=== PATIENT | female | born 1930 | race Caucasian/White ===

== ENCOUNTER 2018-02-20 03:33 | Inpatient (IN) ==
[2018-02-20] MEDS ORDERED: 0.9 % Sodium Chloride 1,000 ML IVC ONE (03:51)
[2018-02-20] MEDS ORDERED: *HR* FentaNYL (PF) 100 MCG/2 ML VIAL IVP ONE ×2 (03:54→05:40)
--- NOTE | 2018-02-20 04:28 | Emergency Department Note ---
Disposition Clinical Impression: Fracture of femur Qualifiers: Encounter type: initial encounter Femur location: unspecified portion of femur Fracture type: closed Fracture morphology: unspecified fracture morphology Laterality: right Qualified Code(s): S72.91XA - Unspecified fracture of right femur, initial encounter for closed fracture Pelvis fracture Qualifiers: Encounter type: initial encounter Pelvic bone location: pubis Sublocation of pubis: unspecified portion of pubis Fracture type: closed Laterality: unspecified laterality Qualified Code(s): S32.509A - Unspecified fracture of unspecified pubis, initial encounter for closed fracture Disposition: Admitted As Inpatient Condition: Good Referrals: NONE,PCP [Primary Care Provider] - Forms: ED Satisfaction Letter Time of Disposition: 06:50 Fall HPI - General Chief Complaint: ED Extremity Injury, Lower Stated Complaint: fall Time Seen by Provider: 02/20/18 03:43 Source: EMS Nursing Notes Reviewed: Yes Vital Signs Reviewed: Yes - History of Present Illness Pt Subjective Complaint: fall Onset (ago): hour(s) (8) Fall From: standing Fall Witnessed: yes Place Fall Occurred: halfway/SNF Loss of Consciousness: none Prolonged Down Time?: no Symptoms Prior to Fall: none Context: tripped/slipped (had attempted to walk without walker), history of frequent falls Location of injury - extremities: Right: hip Quality: aching Associated symptoms (after fall): Reports: unable to walk. Denies: headache, neck pain, chest pain, shortness of breath, abdominal pain, lightheaded - Related Data Allergies Allergy/AdvReac Type Severity Reaction Status Date / Time No Known Allergies Allergy Verified 02/20/18 03:43 All systems ED: reviewed and negative except as stated. Review of Systems: As Per HPI Constitutional: Denies: fever, chills, weakness ENT ED: Denies: throat pain Cardiovascular: Denies: chest pain Respiratory: Denies: dyspnea Gastrointestinal: Denies: abdominal pain, nausea, vomiting Musculoskeletal: Denies: back pain, neck pain Integumentary: Denies: rash Neurological: Denies: headache Hematological/Lymphatic: Denies: easy bleeding Allergic/Immunologic: Denies: facial swelling Fall PMH - Past Medical History Medical history: Reports: atrial fibrillation, dementia, glaucoma, hyperlipidemia, hypertension, renal disease, other - Social History Smoking Status: Never smoker Alcohol use: Reports: none Drug use: Reports: none Physical Exam - General Limitations: altered mental status General appearance: alert, in no apparent distress - Head Head exam: atraumatic, normocephalic - Eye Eye exam: Absent: conjunctival injection - ENT ENT exam: normal exam, normal oropharynx, mucous membranes moist - Neck Neck exam: Present: full ROM. Absent: tenderness - Chest Chest inspection: Present: symmetric chest wall rise - Respiratory Respiratory exam: Absent: respiratory distress - Cardiovascular Cardiovascular exam: Present: regular rate - Abdominal Exam Abdominal exam: Present: soft, Non-Tender - Extremities Exam Extremities exam: Present: normal capillary refill - Expanded Lower Extremity Exam Hip/Pelvis exam: Present: tenderness (right), pelvis stable. Absent: full ROM, swelling, erythema Upper leg exam: Present: tenderness (right) Lower leg exam: Absent: tenderness, swelling Ankle exam: Absent: tenderness, swelling Foot/toe exam: Absent: tenderness, swelling Neurovascular/Tendon exam: Absent: pulse deficit Gait: not tested/not observed - Neurological Exam Neurological exam: Present: alert - Psychiatric Psychiatric exam: Present: normal affect, normal mood - Skin Skin exam: Present: warm, dry, intact, normal color. Absent: rash, cyanosis, diaphoresis Course Course Narrative: 87-year-old female arrives via squad from her halfway (the [facility] [place]). Squad had reported that they were discussed there, after a noted right hip fracture on x-ray. Patient reports that she has pain in her right hip, and states that she had fallen yesterday, otherwise her history appears to be limited. I was able to have a discussion by telephone with patient's nurse at [facility], Jammie. She mentions patient had fallen approximately 8 to 8:30 PM. Apparently patient became agitated with another resident, had gotten out of bed to yell at him, and did not use her walker and had a mechanical fall. Jammie did report patient has had a history of mechanical falls. She denies that the patient had any loss of consciousness, prolonged downtime, near syncopal symptoms. She does confirm the patient has a history of Alzheimer's, and mentions that patient before and after the fall had been mentating at her baseline. She is given the patient's medication [place] [phone] but did not feel that had helped. The report her vitals were within normal limits after the injury. They deny any recent illness, any other injuries, and they described the patient as able to use a walker and not bedridden. She mentions patient's son is aware and may be in route. PMhx: Atrial fibrillation currently on Xarelto, Alzheimer's disease, glaucoma, depression, hypertension, chronic kidney disease, h/o of chronic falls Pt code status is DNRCC Arrest On examination patient is alert to self. Head face , upper extremities appear to be atraumatic. Tenderness over right thigh and hip. No abdominal tenderness. Heart regular rate. Physical exam limited due to patient's pain, patient is is not able to sit up. She does follow commands and does respond to pain. Her vitals here are within normal limits. At this point I do not have access to patient's x-rays, so we will shoot them. Analgesics ordered. IV ordered. Will plan ortho consult and likely admission. - Reevaluation(s) Reevaluation #1: X-rays reviewed, she does have a trochanteric femur fracture, as well as fractures to the inferior and superior rami. We will plan for ortho consult, and admission. CXR shows no evidence of infection or rib fractures. UA pending , nursing attempting to place resendiz cath. Time: 06:00 Reevaluation #2: Pt discussed with and accepted by hospitalists Dr. Jon Time: 06:43 - Consultations Consultation #1: On-call orthopedic provider was paged, patient's workup and medical history discussed with Dr. Torre, who requested admit patient to hospitalist. He mentioned surgery would likely be today or tomorrow. Time: 06:07 Vital Signs Temperature 98.3 F 02/20/18 03:39 Pulse Rate 86 02/20/18 03:39 Respiratory Rate 20 02/20/18 03:39 Blood Pressure 164/84 02/20/18 03:39 O2 Sat by Pulse Oximetry 94 02/20/18 03:39 Temperature 98.3 F 02/20/18 03:39 Pulse Rate 84 02/20/18 06:05 Respiratory Rate 24 02/20/18 06:05 Blood Pressure 171/93 02/20/18 06:05 O2 Sat by Pulse Oximetry 95 02/20/18 06:05 Oxygen Delivery Oxygen Delivery Nasal Cannula Fall - [facility] Narrative Medical decision making narrative: Patient presented from her halfway with injuries from a mechanical fall. Workup tonight subtrochanteric right femur fracture, as well as rami fracture orthopedics consult, advised for admission to hospitalist, for likely surgery. Pt discussed with and accepted by Dr. Jon. Pt discussed with Dr. Still who also had face time with patient and agreed with workup and disposition. Patient's vitals stable here. No concern for any injury to head or neck. I had discussed patient with nurse Jammie patient's facility, stated mentating normally for after the injury. She also also denied any concern for recent illness or injury of the patient. Femur X-Ray 02/20/18 04:10 IMPRESSION: 1. Subtrochanteric fracture right femur. 2. In the pelvis, superior and inferior pubic rami on the right side are also fractured. D/ / Osvaldo Hunt / Osvaldo Hunt Interpreting Provider: Osvaldo Hunt Pelvis X-Ray 02/20/18 04:10 IMPRESSION: 1. Subtrochanteric fracture right femur. 2. In the pelvis, superior and inferior pubic rami on the right side are also fractured. D/ / Osvaldo Hunt / Osvaldo Hunt Interpreting Provider: Osvaldo Hunt Chest X-Ray 02/20/18 04:43 IMPRESSION: Cardiomegaly. No displaced rib fracture on the left side. Difficult evaluation for subtle nondisplaced injuries on the right secondary to positioning. D/ / Osvaldo Hunt / Osvaldo Hunt Interpreting Provider: Osvaldo Hunt - Lab Data Lab results reviewed: Yes I reviewed the patient's lab results. Result diagrams: 02/20/18 03:59 02/20/18 03:59 Lab Results 02/20/18 02/20/18 02/20/18 Range/Units 03:59 03:59 03:59 WBC 16.8 H (4.3-11.1) K/mcL RBC 3.98 (3.82-4.97) M/mcL Hgb 10.4 L (11.5-15.4) g/dL Hct 34.7 L (35.3-44.9) % MCV 87.2 (83.0-100.0) fL MCH 26.1 L (28.0-33.3) pg MCHC 30.0 L (31.6-35.5) g/dL RDW 16.9 H (11.5-14.5) % Plt Count 239 (140-400) K/mcL MPV 11.8 (9.4-12.4) fL Immature Gran % 0.8 (0-4) % Seg Neutrophils % 85.1 % Lymphocytes % 5.4 % Monocytes % 7.8 % Eosinophils % 0.7 % Basophils % 0.2 % Neutrophils # 14.3 H (1.6-8.9) K/mcL Lymphocytes # 0.9 (0.6-4.6) K/mcL Monocytes # 1.3 (0.0-1.3) K/mcL Eosinophils # 0.1 (0.0-0.6) K/mcL Basophils # 0.0 (0.0-0.2) K/mcL PT 18.7 H (9.4-12.1) Seconds INR 1.7 APTT 36.5 H (26.0-36.0) Seconds Sodium 140 (136-145) mEq/L Potassium 4.5 (3.5-5.1) mEq/L Chloride 104 (98-107) mEq/L Carbon Dioxide 28 (23-29) mEq/L BUN 18 (8-23) mg/dL Creatinine 0.93 (0.60-1.20) mg/dL Est GFR ( Amer) > 60 (> 60) Est GFR (Non-Af Amer) 57 L (> 60) BUN/Creatinine Ratio 19 (6-26) Glucose 158 H (70-105) mg/dL Calculated Osmolality 295 (280-300) Calcium 9.6 (8.6-10.3) mg/dL Blood Type Antibody Screen 02/20/18 Range/Units 03:59 WBC (4.3-11.1) K/mcL RBC (3.82-4.97) M/mcL Hgb (11.5-15.4) g/dL Hct (35.3-44.9) % MCV (83.0-100.0) fL MCH (28.0-33.3) pg MCHC (31.6-35.5) g/dL RDW (11.5-14.5) % Plt Count (140-400) K/mcL MPV (9.4-12.4) fL Immature Gran % (0-4) % Seg Neutrophils % % Lymphocytes % % Monocytes % % Eosinophils % % Basophils % % Neutrophils # (1.6-8.9) K/mcL Lymphocytes # (0.6-4.6) K/mcL Monocytes # (0.0-1.3) K/mcL Eosinophils # (0.0-0.6) K/mcL Basophils # (0.0-0.2) K/mcL PT (9.4-12.1) Seconds INR APTT (26.0-36.0) Seconds Sodium (136-145) mEq/L Potassium (3.5-5.1) mEq/L Chloride (98-107) mEq/L Carbon Dioxide (23-29) mEq/L BUN (8-23) mg/dL Creatinine (0.60-1.20) mg/dL Est GFR ( Amer) (> 60) Est GFR (Non-Af Amer) (> 60) BUN/Creatinine Ratio (6-26) Glucose (70-105) mg/dL Calculated Osmolality (280-300) Calcium (8.6-10.3) mg/dL Blood Type O NEGATIVE Antibody Screen NEGATIVE - Radiology Data Radiology results reviewed: Yes I reviewed the patient's radiology results. Attestation Statement - Attestation Attestation: I examined this patient and my medical decision-making was reviewed with the Resident Physician. I agree with the documented findings, disposition and treatment plan as described except to the extent set forth below. Subtrochanteric fracture of the right femur. Patient be admitted for orthopedic consultation. Neurovascular intact at this time. Injuries or resulting from fall.
[2018-02-20 04:40] LABS: Basophils % 0.2 %; Eosinophils # 0.1 K/mcL (0.0-0.6); Eosinophils % 0.7 %; Hematocrit 34.7 % (35.3-44.9); Hemoglobin 10.4 g/dL (11.5-15.4); Immature Granulocytes % 0.8 % (0-4); Lymphocytes # 0.9 K/mcL (0.6-4.6); Lymphocytes % 5.4 %; Mean Corpuscular Hemoglobin 26.1 pg (28.0-33.3); Mean Corpuscular Volume 87.2 fL (83.0-100.0); Mean Platelet Volume 11.8 fL (9.4-12.4); Monocytes # 1.3 K/mcL (0.0-1.3); Monocytes % 7.8 %; Neutrophils # 14.3 K/mcL (1.6-8.9); Platelet Count 239 K/mcL (140-400); Red Blood Count 3.98 M/mcL (3.82-4.97); Red Cell Distribution Width 16.9 % (11.5-14.5); Segmented Neutrophils % 85.1 %
[2018-02-20 04:48] LABS: INR 1.7; Prothrombin Time 18.7 Seconds (9.4-12.1)
[2018-02-20 04:50] LABS: Activated Partial Thrombo Time 36.5 Seconds (26.0-36.0)
[2018-02-20 05:02] LABS: BUN/Creatinine Ratio 19 (6-26); Blood Urea Nitrogen 18 mg/dL (8-23); Calcium 9.6 mg/dL (8.6-10.3); Carbon Dioxide 28 mEq/L (23-29); Chloride 104 mEq/L (98-107); Glucose 158 mg/dL (70-105); Osmolality,Calculated 295 (280-300); Potassium 4.5 mEq/L (3.5-5.1); Sodium 140 mEq/L (136-145); eGFR For Non-African Americans 57 (> 60)
[2018-02-20] MEDS ORDERED: *HR* HYDROcodone/Acet 5/325 mg TABLET PO PRN ×2 (07:23→14:50)
[2018-02-20] MEDS ORDERED: *HR* OxyCODONE Immed Rel 5 MG TABLET PO PRN ×2 (07:23→14:50)
[2018-02-20] MEDS ORDERED: Acetaminophen 325 MG TABLET PO PRN (07:23)
[2018-02-20] MEDS ORDERED: Naloxone 0.4 MG/ML INJ IVP PRN ×3 (07:23→14:50)
--- NOTE | 2018-02-20 08:16 | Internal Med History&Physical ---
Date of Encounter: 02/20/18 Time of Encounter: 07:30 Internal Medicine - H&P: HPI Chief complaint: R hip pain History of present illness: Patient has underlying dementia and she was medicated with IV fentanyl for her hip pain so the history is limited. 87 year old female with past medical history of atrial fibrillation, hypertension, hyperlipidemia, CAD, dementia, resident of half-way, presented after an episode of fall yesterday. According to the chart review, patient had fallen around 8pm when she was trying to get out of her bed to yell at another resident but did not use her walker and had a mechanical fall. Landed on the right side of her body, but patient did not lose any consciousness or had obvious head injury. No change in her mentation after the fall. Recent illnesses, fevers/chills, nausea/ vomiting, abdominal pain, change in bowel habits, dysuria, or foul-smelling urine. She is on Xarelto for atrial fibrillation. In the ED, she was afebrile and hemodynamically stable. Initial workup showed right subtrochanteric femoral fracture as well as superior and inferior pubic rami fracture on the same side. Labs were unremarkable except for leukocytosis of 16.8. Her case was discussed with orthopedics on-call who may take her to the surgery today or tomorrow. Past Med Surg Social Fam HX - Past Medical History Medical history: atrial fibrillation, dementia, glaucoma, hyperlipidemia, hypertension, renal disease, other - Social History Smoking Status: Never smoker Smokeless Tobacco Status: No Alcohol use: none Drug use: none Internal Medicine - H&P: Meds Calcium Carbonate/Vitamin D3 [Calcium 600 + Vit D Tablet] 1 tab PO BID 02/20/18 [History] Docusate [Colace] 200 mg PO DAILY 02/20/18 [History] Donepezil [Aricept] 10 mg PO HS 02/20/18 [History] Dorzolamide/Timolol [Cosopt] 1 drop BOTH EYES BID 02/20/18 [History] Gabapentin [Neurontin] 300 mg PO BID 02/20/18 [History] HYDROcodone/Acet 10/325 mg [[place] 10-325 mg] 1 tab PO Q4HR PRN 02/20/18 [History ] Metoprolol Succinate [Toprol Xl] 50 mg PO DAILY 02/20/18 [History] Oxymetazoline HCl [Long Acting Nasal [place]] 15 ml NS BID 02/20/18 [History] Pravastatin Sodium [Pravachol] 20 mg PO DAILY 02/20/18 [History] Rivaroxaban [Xarelto] 15 mg PO DAILY 02/20/18 [History] Sennosides/Docusate Sodium [Senna Plus] 4 tab PO DAILY 02/20/18 [History] Travoprost [Travatan Z] 1 drop OP DAILY 02/20/18 [History] 3 Allergy/AdvReac Type Severity Reaction Status Date / Time No Known Allergies Allergy Verified 02/20/18 03:43 ROS unobtainable: due to mental status All Systems PM: A 10-system review of systems was performed and is negative for pertinent findings except as documented above in the HPI. - Constitutional Vitals: Temp Pulse Resp BP Pulse Ox 98.3 F 86 24 174/84 98 02/20/18 03:39 02/20/18 07:28 02/20/18 07:55 02/20/18 07:55 02/20/18 07:28 Exam: General: Somnolent after medication, appears comfortable otherwise HEENT:EOM, pupils equal, round, and reactive. Cardiovascular:Normal S1 & S2, Pulse irregular but normal rate Lungs:Normal breath sounds, no wheezes or crackles. Abdomen:Soft, non-tender, no rigidity. Extremities:R mid thigh tenderness on palpation, no obvious deformity noted although limited by her body habitus. Neurovascularly intact distally Neurological: Somnolent, moving the other 3 limbs well without focal weakness Skin:Normal color, no rash, no lesions. Pulses:Carotid and radial pulses normal +2. Rest of the physical exam is non-contributory Internal Med - H&P Results - Labs CBC & Chem 7: 02/20/18 03:59 02/20/18 03:59 - Assessment and plan (1) Fracture of femur Current Visit: Yes Status: Acute Assessment and plan: After mechanical fall. X-ray showed right femoral subtrochanteric fracture as well as superior and inferior pubic rami fracture. Nothing by mouth, ortho consult. Op will be likely today We will hold off on Xarelto Pain management Qualifiers: Encounter type: initial encounter Femur location: unspecified portion of femur Fracture type: closed Fracture morphology: unspecified fracture morphology Laterality: right Qualified Code(s): S72.91XA - Unspecified fracture of right femur, initial encounter for closed fracture (2) Pelvis fracture Current Visit: Yes Status: Acute Assessment and plan: Likely nonsurgical management. Follow with ortho Qualifiers: Encounter type: initial encounter Pelvic bone location: pubis Sublocation of pubis: unspecified portion of pubis Fracture type: closed Laterality: right Qualified Code(s): S32.501A - Unspecified fracture of right pubis, initial encounter for closed fracture (3) Afib Current Visit: Yes Status: Acute Assessment and plan: Controlled on beta fidencio, continue We will hold off on Xarelto till postoperative Qualifiers: Atrial fibrillation type: unspecified Qualified Code(s): I48.91 - Unspecified atrial fibrillation (4) CKD (chronic kidney disease) Current Visit: No Status: Chronic Assessment and plan: Stable, continue to monitor postop. Qualifiers: Chronic kidney disease stage: stage 3 (moderate) Qualified Code(s): N18.3 - Chronic kidney disease, stage 3 (moderate) (5) Hypertension Current Visit: No Status: Chronic Assessment and plan: Continue beta fidencio Qualifiers: Hypertension type: unspecified Qualified Code(s): I10 - Essential (primary ) hypertension (6) DVT prophylaxis Current Visit: Yes Status: Acute Assessment and plan: Resume xarelto post-op - Time Spent With Patient Total time spent is greater than 50% in coordination of care (as documented) at patient's floor/unit and/or counseling patient:
[2018-02-20] MEDS ORDERED: Sennosides/Docusate Sodium TABLET PO SCH (09:00)
[2018-02-20] MEDS ORDERED: Latanoprost 2.5 ML BOTTLE BOTH EYES SCH (09:00)
[2018-02-20] MEDS ORDERED: Gabapentin 300 MG CAPSULE PO SCH (09:00)
[2018-02-20] MEDS ORDERED: Metoprolol XL (24 HR) Succ 50 MG TAB.ER.24H PO SCH (09:00)
[2018-02-20] MEDS ORDERED: Dorzolamide/Timolol OPTH 10 ML BOTTLE BOTH EYES SCH (09:00)
[2018-02-20] MEDS ORDERED: [UNRECOGNIZED DRUG - OTHER] PO SCH (09:00)
[2018-02-20] MEDS ORDERED: CALCIUM PO SCH (09:00)
[2018-02-20] MEDS ORDERED: Oxymetazoline Nasal SPRAY BOTTLE NS SCH (09:00)
--- NOTE | 2018-02-20 09:11 | Orthopedic Consult Note ---
Date of Encounter: 02/20/18 Time of Encounter: 09:10 Assessment and Plan (1) Fracture of femur Current Visit: Yes Status: Acute The diagnosis and treatment recommendations were discussed with the patient and her family. She has a intertrochanteric fracture of the right hip and to allow her opportunity for early mobility with therapy, and for pain control and to decrease the risks associated with immobility, surgical treatment was recommended. After discussing the pros and cons of treatment options including non-operative and operative intervention, the patient's son who is POA has consented for right hip cephalomedullary nail to be performed. The risks and benefits of the procedure were fully explained in detail, including but not limited to the risk of infection, neurovascular injury, continued pain or stiffness, failure of surgery, reinjury, or need for additional surgery, DVT, PE , general risks of anesthesia and loss of limb or life. No guarantees were given or implied and all questions were answered. The patient's family understands all the risks and does wish to proceed with written consent. NPO for surgery. Appreciate medical management from primary team. Qualifiers: Encounter type: initial encounter Femur location: unspecified portion of femur Fracture type: closed Fracture morphology: unspecified fracture morphology Laterality: right Qualified Code(s): S72.91XA - Unspecified fracture of right femur, initial encounter for closed fracture History of Present Illness HPI: Ms. Ferguson is a 87 year old female with PMHx atrial fibrillation, hypertension, hyperlipidemia, CAD, dementia, who resides in a long-term who presents after a mechanical fall last night. History is limited due to underlying dementia. She tripped getting out of bed without her walker and fell onto her right side. Reportedly there was no loss of consciousness, she did not hit her head and there was no altered mentation following the fall. No prodromal symptoms including chest pain, palpitations, lightheadedness, or blurring of vision. She was brought to the ED and diagnosed with a right hip displaced transtrochanteric fracture and right superior and inferior rami fracture. Orthopedics was consulted for fracture management. Denies pain other than her right hip. No numbness or tingling. She typically alternates between a walker and wheelchair. Past Med Surg Social Fam HX - Past Medical History Medical history: atrial fibrillation, dementia, glaucoma, hyperlipidemia, hypertension, renal disease, other - Social History Smoking Status: Never smoker Smokeless Tobacco Status: No Alcohol use: none Drug use: none Medications and Allergies Calcium Carbonate/Vitamin D3 [Calcium 600 + Vit D Tablet] 1 tab PO BID 02/20/18 [History] Docusate [Colace] 200 mg PO DAILY 02/20/18 [History] Donepezil [Aricept] 10 mg PO HS 02/20/18 [History] Dorzolamide/Timolol [Cosopt] 1 drop BOTH EYES BID 02/20/18 [History] Gabapentin [Neurontin] 300 mg PO BID 02/20/18 [History] HYDROcodone/Acet 10/325 mg [[place] 10-325 mg] 1 tab PO Q4HR PRN 02/20/18 [History ] Metoprolol Succinate [Toprol Xl] 50 mg PO DAILY 02/20/18 [History] Oxymetazoline HCl [Long Acting Nasal [place]] 15 ml NS BID 02/20/18 [History] Pravastatin Sodium [Pravachol] 20 mg PO DAILY 02/20/18 [History] Rivaroxaban [Xarelto] 15 mg PO DAILY 02/20/18 [History] Sennosides/Docusate Sodium [Senna Plus] 4 tab PO DAILY 02/20/18 [History] Travoprost [Travatan Z] 1 drop OP DAILY 02/20/18 [History] 3 Allergy/AdvReac Type Severity Reaction Status Date / Time No Known Allergies Allergy Verified 02/20/18 03:43 ROS unobtainable: due to mental status All Systems Reviewed: The remainder of the systems were reviewed and are negative Physical Exam - Constitutional Vitals: Temp Pulse Resp BP Pulse Ox 98.6 F 83 20 171/85 95 02/20/18 08:20 02/20/18 08:20 02/20/18 08:20 02/20/18 08:20 02/20/18 08:20 Exam: Consult Exam: Limited by dementia Constitutional -Vitals reviewed -The patient is well developed and well nourished. -Mood is pleasant. Psychiatric -The patient alert and oriented to person. Respiratory: -Respiratory effort normal Abdomen: -Soft abdomen -Non tender -Non distended: Left upper extremity: -No deformities. The overlying skin is intact with overlying ecchymosis. -No significant pain with passive motion of the shoulder, elbow, able to flex fingers. -Spontaneously moves fingers and arm -Radial pulse is present; Fingers have good capillary refill. Right upper extremity: -No deformities. The overlying skin is intact with overlying ecchymosis. -No significant pain with passive motion of the shoulder, elbow, able to flex fingers. -Spontaneously moves fingers and arm -Radial pulse is present; Fingers have good capillary refill. Left lower extremity: -No deformities. The overlying skin is intact. No obvious signs of acute trauma. -No tenderness to palpation throughout. -No pain with passive motion of the hip, knee, ankle, and toes within the limits of the bed. -No pain with axial loading of the thigh. -Able to wiggle toes -Toes have good capillary refill. Right lower extremity: -Deformity and shortening to the right leg. The overlying skin is intact. -There is tenderness at the proximal lateral thigh. -I did not range the hip due to the known fracture. -No tenderness along the distal thigh, leg, ankle, foot, or toes. -Able to wiggle toes -Toes have good capillary refill. Results - Labs Result Diagrams: 02/20/18 03:59 02/20/18 03:59 Labs: Abnormal lab results WBC 16.8 K/mcL (4.3-11.1) H 02/20/18 03:59 Hgb 10.4 g/dL (11.5-15.4) L 02/20/18 03:59 Hct 34.7 % (35.3-44.9) L 02/20/18 03:59 MCH 26.1 pg (28.0-33.3) L 02/20/18 03:59 MCHC 30.0 g/dL (31.6-35.5) L 02/20/18 03:59 RDW 16.9 % (11.5-14.5) H 02/20/18 03:59 Neutrophils # 14.3 K/mcL (1.6-8.9) H 02/20/18 03:59 PT 18.7 Seconds (9.4-12.1) H 02/20/18 03:59 APTT 36.5 Seconds (26.0-36.0) H 02/20/18 03:59 Est GFR (Non-Af Amer) 57 (> 60) L 02/20/18 03:59 Glucose 158 mg/dL (70-105) H 02/20/18 03:59 All other labs normal. - Diagnostic results Hip x-ray: report reviewed, image reviewed (Right transtrochanteric fracture with extension into the greater trochanter) Pelvic AP x-ray: report reviewed, image reviewed (Nondisplaced right inferior and superior rami fx) Consult Discharge Plan - Plan Referrals: NONE,PCP [Primary Care Provider] -
--- NOTE | 2018-02-20 10:46 | Anesthesia Evaluation PreOp ---
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 WORKER History: Other (Alzheimers Dementia) Other Medical History: Renal (stage 3 CRI), Other (Glaucoma) Anesthesia History: No Prior Anesthetic Complications, Past Anesthesia ("Back Tumor" 1960s, Heel spur) Alcohol Use: none Drug use: none Medications and Allergies Calcium Carbonate/Vitamin D3 [Calcium 600 + Vit D Tablet] 1 tab PO BID 02/20/18 [History] Docusate [Colace] 200 mg PO DAILY 02/20/18 [History] Donepezil [Aricept] 10 mg PO HS 02/20/18 [History] Dorzolamide/Timolol [Cosopt] 1 drop BOTH EYES BID 02/20/18 [History] Gabapentin [Neurontin] 300 mg PO BID 02/20/18 [History] HYDROcodone/Acet 10/325 mg [[place] 10-325 mg] 1 tab PO Q4HR PRN 02/20/18 [History ] Metoprolol Succinate [Toprol Xl] 50 mg PO DAILY 02/20/18 [History] Oxymetazoline HCl [Long Acting Nasal [place]] 15 ml NS BID 02/20/18 [History] Pravastatin Sodium [Pravachol] 20 mg PO DAILY 02/20/18 [History] Rivaroxaban [Xarelto] 15 mg PO DAILY 02/20/18 [History] Sennosides/Docusate Sodium [Senna Plus] 4 tab PO DAILY 02/20/18 [History] Travoprost [Travatan Z] 1 drop OP DAILY 02/20/18 [History] 3 Allergy/AdvReac Type Severity Reaction Status Date / Time No Known Allergies Allergy Verified 02/20/18 03:43 - Meds/Allergy Pre-op Review Medications Reviewed: Yes Allergies Reviewed: Yes Beta Blockers on Current Med List: Yes (Metoprolol - pt refused this morning's dose. ) Anesthesia Results - Labs 02/20/18 03:59 02/20/18 03:59 Laboratory Results WBC 16.8 K/mcL (4.3-11.1) H 02/20/18 03:59 RBC 3.98 M/mcL (3.82-4.97) 02/20/18 03:59 Hgb 10.4 g/dL (11.5-15.4) L 02/20/18 03:59 Hct 34.7 % (35.3-44.9) L 02/20/18 03:59 MCV 87.2 fL (83.0-100.0) 02/20/18 03:59 MCH 26.1 pg (28.0-33.3) L 02/20/18 03:59 MCHC 30.0 g/dL (31.6-35.5) L 02/20/18 03:59 RDW 16.9 % (11.5-14.5) H 02/20/18 03:59 Plt Count 239 K/mcL (140-400) 02/20/18 03:59 MPV 11.8 fL (9.4-12.4) 02/20/18 03:59 Immature Gran % 0.8 % (0-4) 02/20/18 03:59 Seg Neutrophils % 85.1 % 02/20/18 03:59 Lymphocytes % 5.4 % 02/20/18 03:59 Monocytes % 7.8 % 02/20/18 03:59 Eosinophils % 0.7 % 02/20/18 03:59 Basophils % 0.2 % 02/20/18 03:59 Neutrophils # 14.3 K/mcL (1.6-8.9) H 02/20/18 03:59 Lymphocytes # 0.9 K/mcL (0.6-4.6) 02/20/18 03:59 Monocytes # 1.3 K/mcL (0.0-1.3) 02/20/18 03:59 Eosinophils # 0.1 K/mcL (0.0-0.6) 02/20/18 03:59 Basophils # 0.0 K/mcL (0.0-0.2) 02/20/18 03:59 PT 18.7 Seconds (9.4-12.1) H 02/20/18 03:59 INR 1.7 02/20/18 03:59 APTT 36.5 Seconds (26.0-36.0) H 02/20/18 03:59 Sodium 140 mEq/L (136-145) 02/20/18 03:59 Potassium 4.5 mEq/L (3.5-5.1) 02/20/18 03:59 Chloride 104 mEq/L (98-107) 02/20/18 03:59 Carbon Dioxide 28 mEq/L (23-29) 02/20/18 03:59 BUN 18 mg/dL (8-23) 02/20/18 03:59 Creatinine 0.93 mg/dL (0.60-1.20) 02/20/18 03:59 Est GFR ( Amer) > 60 (> 60) 02/20/18 03:59 Est GFR (Non-Af Amer) 57 (> 60) L 02/20/18 03:59 BUN/Creatinine Ratio 19 (6-26) 02/20/18 03:59 Glucose 158 mg/dL (70-105) H 02/20/18 03:59 Calculated Osmolality 295 (280-300) 02/20/18 03:59 Calcium 9.6 mg/dL (8.6-10.3) 02/20/18 03:59 Blood Type O NEGATIVE 02/20/18 03:59 Antibody Screen NEGATIVE 02/20/18 03:59 Impressions Femur X-Ray 02/20/18 04:10 IMPRESSION: 1. Subtrochanteric fracture right femur. 2. In the pelvis, superior and inferior pubic rami on the right side are also fractured. D/ / Osvaldo Hunt / Osvaldo Hunt Interpreting Provider: Osvaldo Hunt Pelvis X-Ray 02/20/18 04:10 IMPRESSION: 1. Subtrochanteric fracture right femur. 2. In the pelvis, superior and inferior pubic rami on the right side are also fractured. D/ / Osvaldo Hunt / Osvaldo Hunt Interpreting Provider: Osvaldo Hunt Chest X-Ray 02/20/18 04:43 IMPRESSION: Cardiomegaly. No displaced rib fracture on the left side. Difficult evaluation for subtle nondisplaced injuries on the right secondary to positioning. D/ / Osvaldo Hunt / Osvaldo Hunt Interpreting Provider: Osvaldo Hunt - Imaging EKG: image reviewed (94bpm AFib w/premature complexes, Non-specific T-wave abnormality) Anesthesia Exam Vital Signs Temp Pulse Resp BP Pulse Ox 02/20/18 08:20 98.6 F 83 20 171/85 95 02/20/18 07:55 24 174/84 02/20/18 07:28 86 24 178/91 98 02/20/18 06:05 84 24 171/93 95 02/20/18 03:39 98.3 F 86 20 164/84 94 Intake and Output 02/19/18 02/20/18 02/20/18 23:59 07:59 15:59 Intake Total 1000 / 1000 Output Total 350 / 350 Balance 1000 / 1000 -350 / -350 Intake: IV Fluids 1000 / 1000 0.9 % Sodium Chloride 1,000 ML 1000 / 1000 @ 999 mls/hr IVC .Q1H1M ONE Rx# :[id number] Output: Catheter 350 / 350 Other: Weight 88.451 kg Patient Weight 02/20/18 23:59 Weight 88.451 kg Height: 5'3" Weight: 195# BMI = 34.5 NPO (# of Hours): MNOc Pain Scale Used: Numeric (1 - 10) - HEENT Pupil (Motor): Pupils equal, EOMI Mallampati: II Teeth: Edentulous Oral Opening: Greater than 3 - PASS WORKER LOC: Oriented PASS WORKER Motor: Normal RUE, Normal LUE, Normal RLE, Normal LLE, Normal Face PASS WORKER Sensory: Normal: RUE, LUE, RLE, LLE, Face - Cardiac Rhythm: Irregular Murmur: None - Pulmonary Breath Sounds: bilateral Clear Respiratory Effort: Symmetrical Anesthesia Assess/Plan ASA Score: 3 (AFib, Alzheimer's Dementia, Glaucoma, HTN, Chol, CRI) Modified Drayden Scale for Level of Consciousness: Cooperative, oriented, and tranquil Anesthetic Plan: General Monitoring Plan: Standard Monitors Recovery Plan: PACU Anes Supervising Prov Stmt: Pt seen/evaluated, R&B questions answered and consent obtained from [facility] [ Arturo Viar]. Sharath Dangelo MD
[2018-02-20] MEDS ORDERED: Ketamine *HR* 500 MG/10 ML MDV ONE (11:20)
[2018-02-20] MEDS ORDERED: Acetaminophen IV 1,000 MG/100 ML INFUS..BTL ONE (11:20)
[2018-02-20] MEDS ORDERED: Famotidine 20 MG/2 ML VIAL ONE (11:21)
[2018-02-20] MEDS ORDERED: *HR* Succinylcholine 200 MG/10 ML VIAL IVP ONE (11:23)
[2018-02-20] MEDS ORDERED: Ondansetron 4 MG/2 ML VIAL ONE (11:23)
[2018-02-20] MEDS ORDERED: Dexamethasone 4 MG/ML VIAL ONE (11:23)
[2018-02-20] MEDS ORDERED: *HR* Midazolam HCl 2 MG/2 ML VIAL ONE (11:23)
[2018-02-20] MEDS ORDERED: Ketorolac 30 MG/ML VIAL ONE (11:23)
[2018-02-20] MEDS ORDERED: *HR* Propofol 200 MG/20 ML VIAL IVP ONE (11:23)
[2018-02-20] MEDS ORDERED: Lidocaine -MPF 4% 5 ML AMPUL ONE (11:23)
[2018-02-20] MEDS ORDERED: Lidocaine -MPF 2% 2 ML VIAL ONE (11:23)
[2018-02-20] MEDS ORDERED: *HR* FentaNYL (PF) 100 MCG/2 ML VIAL ONE (11:23)
[2018-02-20] MEDS ORDERED: *HR* Remifentanil 2 MG VIAL IVP ONE (11:24)
[2018-02-20] MEDS ORDERED: *HR* Magnesium Sulfate 1 GM/2 ML VIAL ONE ×2 (11:28)
[2018-02-20] MEDS ORDERED: *HR* PHENYLEPHRINE 1,000 MCG/10 ML SYRINGE IVP ONE ×3 (11:33→13:04)
[2018-02-20] MEDS ORDERED: *HR* HYDROmorphone (PF) 1 MG/ML SYRINGE IVP PRN (13:08)
[2018-02-20] MEDS ORDERED: *HR* Labetalol 20 MG/4 ML SYRINGE IVP PRN (13:08)
[2018-02-20] MEDS ORDERED: *HR* Promethazine 25 MG/ML VIAL IVP PRN (13:08)
--- NOTE | 2018-02-20 14:07 | Orthopedic Operative Note ---
Date of procedure: 02/20/18 Procedure: Procedure: Right hip cephalomedullary nail Preoperative Diagnosis: Right hip transtrochanteric fracture Postoperative Diagnosis: Same Surgeon: Bakari Torre MD Anesthesia: General EBL: 100 cc Components used: Synthes [id number] 125 degrees, 90 mm helical blade Complications: None INDICATIONS: This is a 87 yo F with a PMHx of Atrial fibrillation, Hypertension , hyperlipidemia, CAD, dementia who had a mechanical fall at home and sustained a right hip transtrochanteric fracture. After discussing the patient's hip fracture at length, the patient's son, who is POA, elected for operative management with a cephalomedullary nail of the right hip. The risks and benefits of the procedure were fully explained. Those risks include but are not limited to, infection, neurovascular injury, continued pain, arthritis, stiffness, further injury, need for further surgery, DVT, PE, loss of limb, and loss of life. The patient's family understood all of these risks and wished to proceed. Informed consent was obtained. No guarantees were stated or implied. OPERATIVE REPORT: The patient was identified in the holding area. The right lower extremity was marked, the patient was taken to the operating room and general anesthetic was administered on the hospital bed. The patients head, neck and airway were protected by anesthesia through the case. The patient was then transferred to the fracture table and placed in the supine position with a well padded perineal post. All bony prominences were well padded. The right leg was attached to the traction device on the fracture bed. The left leg was then placed in a well leg ko and positioned out of the way of fluoroscopy. We then utilized the fracture table to reduce the fracture and obtained fluoroscopic images in AP and lateral planes confirming alignment. The right lower extremity was then prepped and draped in the normal manner. Preoperative antibiotics were given prior to incision. A surgical time out protocol was then performed. We then made an incision just proximal to the greater trochanter. We dissected down and through the IT band. We were then able to palpate the greater trochanter and we placed a guidepin in the appropriate starting position on the greater trochanter. We advanced the guidepin into the proximal femur slightly and then confirmed the position in both AP and lateral planes. After confirming acceptable pin placement, we advanced the pin to the level of the lesser trochanter. We then utilized an entry reamer over the pin to open up the canal. We were then able to pass a ball-tipped guidewire down past the fracture site and down distally into the distal femur. We measured and determine the appropriate nail length which was 360 mm. We then reamed the femur up to a size 13.5 mm for an 12 mm nail. We then placed a 125 degree, 360x12 mm size nail. We advanced the nail to the appropriate depth taking care to avoid any further injury. When the nail was at the appropriate depth we used the outrigger to place a compression blade into the femoral head. We confirmed location of the blade on both AP and lateral x-rays. There was compression across the fracture site that was visible on fluoroscopy. After confirming acceptable alignment of the fracture, we then used perfect circles technique to place a distal locking screw from lateral to medial. At this point we obtained final fluoroscopic images of the right hip and femur in both AP and lateral planes. We then thoroughly irrigated the wounds and closed the IT band with 0 Vicryl. Subcutaneous tissue was then closed with 2-0 and 3-0 strata fix. Zip line dressing was placed. The patient was awoken by anesthesia and taken the PACU in stable condition. There are no complications with the case. Postop plan: Weightbearing as tolerated with physical therapy. Patient is on Eliquis and will continue for DVT prophylaxis as per the medical service. Was there an orthodontic technician assistant present: No Estimated blood loss (cc): 100
--- NOTE | 2018-02-20 14:34 | Anesthesia Evaluation Post Op ---
Date of Encounter: 02/20/18 Time of Encounter: 14:30 - Vital Signs Vital Signs: Vital Signs - Last 8 Hours Temp Pulse Resp BP Pulse Ox 02/20/18 14:20 99.5 F 101 24 142/85 100 02/20/18 14:10 78 24 173/91 100 02/20/18 14:00 92 24 125/101 100 02/20/18 13:50 99.2 F 77 22 151/91 100 02/20/18 08:20 98.6 F 83 20 171/85 95 02/20/18 07:55 24 174/84 02/20/18 07:28 86 24 178/91 98 Intake and Output 02/19/18 02/20/18 02/20/18 23:59 07:59 15:59 Intake Total 1000 / 1000 Output Total 450 / 450 Balance 1000 / 1000 -450 / -450 Intake: IV Fluids 1000 / 1000 0.9 % Sodium Chloride 1,000 ML 1000 / 1000 @ 999 mls/hr IVC .Q1H1M ONE Rx# :[id number] Output: Estimated Blood Loss 100 / 100 Catheter 350 / 350 Other: Weight 88.451 kg Patient Weight 02/20/18 23:59 Weight 88.451 kg - Lungs Lungs: Clear Ascult./Percussion - Airway Airway: Non-obstructed - Cardiovascular Regular Rate, Baseline Rhythm - Mental Status Mental Status: Alert & Oriented, Answers Appropriately - Pain Pain Scale: 0 Pain Scale used: Numeric (1 - 10) - Nausea Vomiting Nausea Vomiting: Not Present - Hydration Hydration: Tolerates oral liquids - Discharge PostOp Status: Transfer Patient to floor
[2018-02-20] MEDS: Oxymetazoline Nasal SPRAY BOTTLE NS SCH (21:38)
[2018-02-20] MEDS: Gabapentin 300 MG CAPSULE PO SCH (21:38)
[2018-02-20] MEDS: Dorzolamide/Timolol OPTH 10 ML BOTTLE BOTH EYES SCH (21:39)
[2018-02-20] MEDS: Patient Taking Own Medication 1 EACH PO SCH (21:41)
[2018-02-21 00:39] LABS: Hematocrit 28.6 % (35.3-44.9); Immature Granulocytes % 0.5 % (0-4); Lymphocytes % 6.6 %; Mean Corpuscular HGB Conc 30.8 g/dL (31.6-35.5); Mean Corpuscular Hemoglobin 26.7 pg (28.0-33.3); Mean Corpuscular Volume 86.7 fL (83.0-100.0); Mean Platelet Volume 11.8 fL (9.4-12.4); Platelet Count 171 K/mcL (140-400); Red Cell Distribution Width 16.9 % (11.5-14.5); Segmented Neutrophils % 83.5 %
[2018-02-21 00:40] LABS: Basophils % 0.1 %; Lymphocytes # 1.1 K/mcL (0.6-4.6); Monocytes # 1.5 K/mcL (0.0-1.3); Monocytes % 9.3 %; Neutrophils # 13.6 K/mcL (1.6-8.9)
[2018-02-21 00:43] LABS: Hemoglobin 8.8 g/dL (11.5-15.4)
[2018-02-21 00:47] LABS: INR 1.2; Prothrombin Time 13.2 Seconds (9.4-12.1)
[2018-02-21 01:02] LABS: BUN/Creatinine Ratio 22 (6-26); Blood Urea Nitrogen 21 mg/dL (8-23); Calcium 8.8 mg/dL (8.6-10.3); Carbon Dioxide 26 mEq/L (23-29); Chloride 106 mEq/L (98-107); Glucose 152 mg/dL (70-105); Osmolality,Calculated 292 (280-300); Potassium 4.7 mEq/L (3.5-5.1); Sodium 138 mEq/L (136-145); eGFR For Non-African Americans 56 (> 60)
[2018-02-21] MEDS ORDERED: *HR* Rivaroxaban 15 MG TABLET PO SCH (09:00)
[2018-02-21] MEDS: Gabapentin 300 MG CAPSULE PO SCH ×2 (09:57→21:50)
[2018-02-21] MEDS: Sennosides/Docusate Sodium TABLET PO SCH (09:57)
[2018-02-21] MEDS: Metoprolol XL (24 HR) Succ 50 MG TAB.ER.24H PO SCH (09:58)
[2018-02-21] MEDS: *HR* Rivaroxaban 15 MG TABLET PO SCH (09:58)
[2018-02-21] MEDS: Oxymetazoline Nasal SPRAY BOTTLE NS SCH ×2 (09:59→21:52)
[2018-02-21] MEDS: Dorzolamide/Timolol OPTH 10 ML BOTTLE BOTH EYES SCH ×2 (09:59→21:53)
[2018-02-21] MEDS: Patient Taking Own Medication 1 EACH PO SCH ×2 (10:00→22:22)
[2018-02-21] MEDS: Latanoprost 2.5 ML BOTTLE BOTH EYES SCH (10:00)
[2018-02-21] MEDS: Acetaminophen 325 MG TABLET PO PRN (10:04)
--- NOTE | 2018-02-21 10:39 | Internal Med Progress Note ---
Hospitalist Progress Note - Encounter Date of Encounter: 02/21/18 Time of Encounter: 09:55 - Subjective Interval History: More awake today, however she is confused and not able to verbalize any specific complaints. - Exam Vitals: Temp Pulse Resp BP Pulse Ox 97.4 F L 98 16 147/75 95 02/21/18 07:15 02/21/18 07:15 02/21/18 07:15 02/21/18 07:15 02/21/18 07:15 Exam: General: More awake and alert, confused Cardiovascular:Normal S1 & S2, Pulse irregular but normal rate Lungs:Normal breath sounds, no wheezes or crackles. Abdomen:Soft, non-tender, no rigidity. Extremities:R hip/thigh dressing dry and clean. Neurovascularly intact distally Rest of the physical exam is non-contributory - Assessment and Plan (1) Fracture of femur Current Visit: Yes Status: Acute Assessment and Plan: After mechanical fall. X-ray showed right femoral subtrochanteric fracture as well as superior and inferior pubic rami fracture. Status post right hip cephalomedullary nail insertion, POD1 Hb 8.8 today, continue to monitor started on clears post-op, advance as tolerated resume xarelto for AC Pain management PT/OT, discharge planning (2) Pelvis fracture Current Visit: Yes Status: Acute Assessment and Plan: nonsurgical management. Follow with ortho (3) Afib Current Visit: Yes Status: Acute Assessment and Plan: Controlled on beta fidencio, continue Xarelto resumed (4) CKD (chronic kidney disease) Current Visit: No Status: Chronic Assessment and Plan: Stable, continue to monitor postop. (5) Hypertension Current Visit: No Status: Chronic Assessment and Plan: Continue beta fidencio (6) DVT prophylaxis Current Visit: Yes Status: Acute Assessment and Plan: Xarelto resumed post-operatively - Time Spent with Patient Total time spent is greater than 50% in coordination of care (as documented) at patient's floor/unit and/or counseling patient: Plan of Care Discussed with: nurse Internal Medicine: Result - Labs CBC & Chem 7: 02/21/18 00:27 02/21/18 00:27 Labs: Short CBC 02/21/18 Range/Units 00:27 WBC 16.3 H (4.3-11.1) K/mcL Hgb 8.8 L D (11.5-15.4) g/dL Hct 28.6 L (35.3-44.9) % Plt Count 171 (140-400) K/mcL Neutrophils # 13.6 H (1.6-8.9) K/mcL BMP 02/21/18 00:27 Sodium 138 Potassium 4.7 Chloride 106 Carbon Dioxide 26 BUN 21 Creatinine 0.94 Glucose 152 H Calcium 8.8 - ABG Interpretation ABG results: PT/INR, D-dimer PT 13.2 Seconds (9.4-12.1) H 02/21/18 00:27 - Impressions Impressions Femur X-Ray 02/20/18 13:45 IMPRESSION: Postoperative right hip internal fixation with improved alignment of the intertrochanteric fracture fragments. D/ / 02/20/2018 14:36:13 Ministerio Simmons MD / patsy Interpreting Provider: Ministerio Simmons MD - VTE Documentation of Mechanical Device: Intermittent pneumatic compression device Consult Discharge Plan - Plan Referrals: NONE,PCP [Primary Care Provider] - (1) Fracture of femur Qualifiers: Encounter type: initial encounter Femur location: unspecified portion of femur Fracture type: closed Fracture morphology: unspecified fracture morphology Laterality: right Qualified Code(s): S72.91XA - Unspecified fracture of right femur, initial encounter for closed fracture (2) Pelvis fracture Qualifiers: Encounter type: initial encounter Pelvic bone location: pubis Sublocation of pubis: unspecified portion of pubis Fracture type: closed Laterality: right Qualified Code(s): S32.501A - Unspecified fracture of right pubis, initial encounter for closed fracture (3) Afib Qualifiers: Atrial fibrillation type: unspecified Qualified Code(s): I48.91 - Unspecified atrial fibrillation (4) CKD (chronic kidney disease) Qualifiers: Chronic kidney disease stage: stage 3 (moderate) Qualified Code(s): N18.3 - Chronic kidney disease, stage 3 (moderate) (5) Hypertension Qualifiers: Hypertension type: unspecified Qualified Code(s): I10 - Essential (primary) hypertension
--- NOTE | 2018-02-21 11:58 | Orthopedics Progress Note ---
Date of Encounter: 02/21/18 Time of Encounter: 11:56 - Assessment and Plan (1) Fracture of femur Current Visit: Yes Status: Acute Qualifiers: Encounter type: initial encounter Femur location: unspecified portion of femur Fracture type: closed Fracture morphology: unspecified fracture morphology Laterality: right Qualified Code(s): S72.91XA - Unspecified fracture of right femur, initial encounter for closed fracture Subjective Interval history: Doing fine POD#1 s/p R hip CMN. No N/V. Resting comfortably AFVSS Hg 8.8 GEN: NAD, AAOx3 LLE: Dressing c/d/i No drainage or erythema Wiggles toes BCR over toes POD#1 s/p R hip CMN -WBAT RLE -Ambulate with PT as able -PO pain control -Discharge planning - will need rehab Objective Vital signs: Vital Signs Temp Pulse Resp BP Pulse Ox 02/21/18 11:16 98.0 F 89 16 139/72 95 02/21/18 07:15 97.4 F L 98 16 147/75 95 02/21/18 05:42 98.9 F 82 14 160/88 94 02/20/18 23:38 97.9 F 88 16 141/79 92 02/20/18 19:46 98.8 F 82 16 133/84 98 02/20/18 17:25 97.7 F 99 18 154/84 95 02/20/18 16:51 97.6 F 95 19 154/98 96 02/20/18 15:48 97.9 F 84 20 151/90 95 02/20/18 15:23 97.9 F 81 20 145/80 100 02/20/18 14:51 97.7 F 80 22 161/71 95 02/20/18 14:20 99.5 F 101 24 142/85 100 02/20/18 14:10 78 24 173/91 100 02/20/18 14:00 92 24 125/101 100 02/20/18 13:50 99.2 F 77 22 151/91 100 Intake and Output 02/20/18 02/21/18 02/21/18 23:59 07:59 15:59 Intake Total 100 / 100 100 / 100 240 / 240 Output Total 200 / 200 Balance -100 / -100 100 / 100 240 / 240 Intake: IV Fluids 100 / 100 100 / 100 Ancef 2,000 MG In 0.9 % Sodium 100 / 100 100 / 100 Chloride 100 ML @ 200 mls/hr IVPB Q8H [facility] Rx#:[id number] Oral 240 / 240 Output: Catheter 200 / 200 Other: Meal Breakfast Percent of Meal Consumed 35% - Labs CBC & BMP: 02/21/18 00:27 02/21/18 00:27 Labs: Abnormal lab results WBC 16.3 K/mcL (4.3-11.1) H 02/21/18 00:27 RBC 3.30 M/mcL (3.82-4.97) L 02/21/18 00:27 Hgb 8.8 g/dL (11.5-15.4) L D 02/21/18 00:27 Hct 28.6 % (35.3-44.9) L 02/21/18 00:27 MCH 26.7 pg (28.0-33.3) L 02/21/18 00: MCHC 30.8 g/dL (31.6-35.5) L 02/21/18 00:27 RDW 16.9 % (11.5-14.5) H 02/21/18 00:27 Neutrophils # 13.6 K/mcL (1.6-8.9) H 02/21/18 00:27 Monocytes # 1.5 K/mcL (0.0-1.3) H 02/21/18 00:27 PT 13.2 Seconds (9.4-12.1) H 02/21/18 00:27 APTT 36.5 Seconds (26.0-36.0) H 02/20/18 03:59 Est GFR (Non-Af Amer) 56 (> 60) L 02/21/18 00:27 Glucose 152 mg/dL (70-105) H 02/21/18 00:27 - VTE Documentation of Mechanical Device: Intermittent pneumatic compression device Consult Discharge Plan - Plan Referrals: NONE,PCP [Primary Care Provider] -
--- NOTE | 2018-02-21 17:22 | Electrocardiograph Report ---
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
[2018-02-22 01:30] LABS: Basophils % 0.1 %; Eosinophils % 0.1 %; Hematocrit 23.9 % (35.3-44.9); Immature Granulocytes % 0.6 % (0-4); Lymphocytes # 1.2 K/mcL (0.6-4.6); Lymphocytes % 8.4 %; Mean Corpuscular HGB Conc 29.7 g/dL (31.6-35.5); Mean Corpuscular Hemoglobin 25.6 pg (28.0-33.3); Mean Corpuscular Volume 86.3 fL (83.0-100.0); Mean Platelet Volume 11.6 fL (9.4-12.4); Monocytes # 1.8 K/mcL (0.0-1.3); Monocytes % 12.8 %; Neutrophils # 10.8 K/mcL (1.6-8.9); Platelet Count 151 K/mcL (140-400); Red Blood Count 2.77 M/mcL (3.82-4.97)
[2018-02-22 01:34] LABS: Hemoglobin 7.1 g/dL (11.5-15.4)
[2018-02-22] MEDS: Acetaminophen 325 MG TABLET PO PRN (05:11)
[2018-02-22] MEDS: Dorzolamide/Timolol OPTH 10 ML BOTTLE BOTH EYES SCH ×2 (09:27→20:12)
[2018-02-22] MEDS: Oxymetazoline Nasal SPRAY BOTTLE NS SCH ×2 (09:27→20:12)
[2018-02-22] MEDS: *HR* Rivaroxaban 15 MG TABLET PO SCH (09:28)
[2018-02-22] MEDS: Gabapentin 300 MG CAPSULE PO SCH ×2 (09:28→20:12)
[2018-02-22] MEDS: Sennosides/Docusate Sodium TABLET PO SCH (09:28)
[2018-02-22] MEDS: Latanoprost 2.5 ML BOTTLE BOTH EYES SCH (09:28)
[2018-02-22] MEDS: Metoprolol XL (24 HR) Succ 50 MG TAB.ER.24H PO SCH (09:29)
[2018-02-22] MEDS: Patient Taking Own Medication 1 EACH PO SCH (09:30)
[2018-02-22] MEDS ORDERED: Furosemide 20 MG/2 ML VIAL IVP ONE (10:33)
[2018-02-22] MEDS ORDERED: 0.9 % Sodium Chloride 250 ML ONE (11:44)
--- NOTE | 2018-02-22 14:06 | Internal Med Progress Note ---
Hospitalist Progress Note - Encounter Date of Encounter: 02/22/18 Time of Encounter: 10:45 - Subjective Interval History: Patient states she is doing better since yesterday. She is sitting upright in chair and working with therapy. - Exam Vitals: Temp Pulse Resp BP Pulse Ox 97.8 F 86 19 144/83 96 02/22/18 12:14 02/22/18 12:14 02/22/18 12:14 02/22/18 12:14 02/22/18 11:58 Exam: GENERAL: Alert, no distress, cooperative LUNGS: Lungs clear to auscultation, Good diaphragmatic excursion CARDIAC: Irregular rate and rhythm; no rubs, murmurs, or gallops ABDOMEN: Abdomen soft, non-tender, BS normal, No masses or organomegaly EXTREMITIES: Postoperative bandage in on the right limb. Able to wiggle toes. Neurosensory intact PULSES: 2+ radial, 2+ carotid - Assessment and Plan (1) Acute blood loss as cause of postoperative anemia Current Visit: Yes Status: Acute Assessment and Plan: Patient has a hemoglobin of 7.1 this morning. Her baseline was 10.4 on the day of surgery. She is also on anticoagulations for active fibrillation which has been resumed yesterday which is within 24 hours after surgery. I will give her 1 unit of PRBC because I think she will not have quick recovery from this. I will also give her 1 unit of Lasix in between the PRBC transfusion Check H&H in the morning (2) Fracture of femur Current Visit: Yes Status: Acute Assessment and Plan: After mechanical fall. X-ray showed right femoral subtrochanteric fracture as well as superior and inferior pubic rami fracture. Status post right hip cephalomedullary nail insertion, POD1 Hb 8.8 today, continue to monitor started on clears post-op, advance as tolerated resume xarelto for AC Pain management PT/OT, discharge planning 02/22*status post cephalic medullary nail insertion postop day 2 Patient has been doing well as far as therapy is concerned and anticipate advancement of therapy and discharge planning going forward very soon. Pain management working appropriately (3) Pelvis fracture Current Visit: Yes Status: Acute Assessment and Plan: nonsurgical management. Follow with ortho on an outpatient basis (4) Afib Current Visit: Yes Status: Acute Assessment and Plan: Controlled on beta fidencio, continue Xarelto started yesterday. We will have to cautiously monitor hemoglobin though. My threshold for giving 1 unit of PRBC is low followed by Selene (5) CKD (chronic kidney disease) Current Visit: No Status: Chronic Assessment and Plan: Stable, continue to monitor postop. (6) Hypertension Current Visit: No Status: Chronic Assessment and Plan: Continue beta fidencio (7) DVT prophylaxis Current Visit: Yes Status: Acute Assessment and Plan: Already anticoagulated with xarelto since yesterday DVT Prophylaxis: Already anticoagulated - Time Spent with Patient Total time spent is greater than 50% in coordination of care (as documented) at patient's floor/unit and/or counseling patient: 25 - 35 minutes Plan of Care Discussed with: patient Internal Medicine: Result - Labs CBC & Chem 7: 02/22/18 01:04 02/21/18 00:27 Labs: Short CBC 02/22/18 Range/Units 01:04 WBC 13.8 H (4.3-11.1) K/mcL Hgb 7.1 L D (11.5-15.4) g/dL Hct 23.9 L (35.3-44.9) % Plt Count 151 (140-400) K/mcL Neutrophils # 10.8 H (1.6-8.9) K/mcL - ABG Interpretation ABG results: PT/INR, D-dimer PT 13.2 Seconds (9.4-12.1) H 02/21/18 00:27 - VTE Documentation of Mechanical Device: Intermittent pneumatic compression device Consult Discharge Plan - Plan Referrals: NONE,PCP [Primary Care Provider] - (2) Fracture of femur Qualifiers: Encounter type: subsequent encounter Femur location: unspecified portion of femur Fracture type: closed Fracture morphology: unspecified fracture morphology Laterality: right (3) Pelvis fracture Qualifiers: Encounter type: initial encounter Pelvic bone location: pubis Sublocation of pubis: unspecified portion of pubis Fracture type: closed Laterality: right Qualified Code(s): S32.501A - Unspecified fracture of right pubis, initial encounter for closed fracture (4) Afib Qualifiers: Atrial fibrillation type: unspecified Qualified Code(s): I48.91 - Unspecified atrial fibrillation (5) CKD (chronic kidney disease) Qualifiers: Chronic kidney disease stage: stage 3 (moderate) Qualified Code(s): N18.3 - Chronic kidney disease, stage 3 (moderate) (6) Hypertension Qualifiers: Hypertension type: unspecified Qualified Code(s): I10 - Essential (primary) hypertension
[2018-02-23 01:20] LABS: Basophils % 0.2 %; Eosinophils # 0.1 K/mcL (0.0-0.6); Eosinophils % 0.7 %; Hematocrit 25.3 % (35.3-44.9); Hemoglobin 7.8 g/dL (11.5-15.4); Immature Granulocytes % 0.4 % (0-4); Lymphocytes # 1.3 K/mcL (0.6-4.6); Lymphocytes % 10.9 %; Mean Corpuscular HGB Conc 30.8 g/dL (31.6-35.5); Mean Corpuscular Hemoglobin 26.2 pg (28.0-33.3); Mean Corpuscular Volume 84.9 fL (83.0-100.0); Mean Platelet Volume 12.1 fL (9.4-12.4); Monocytes # 1.5 K/mcL (0.0-1.3); Monocytes % 12.3 %; Neutrophils # 9.2 K/mcL (1.6-8.9); Nucleated Red Blood Cells 0.2 /100 WBC (0); Platelet Count 157 K/mcL (140-400); Red Blood Count 2.98 M/mcL (3.82-4.97); Red Cell Distribution Width 17.3 % (11.5-14.5); Segmented Neutrophils % 75.5 %
[2018-02-23 01:36] LABS: BUN/Creatinine Ratio 29 (6-26); Blood Urea Nitrogen 23 mg/dL (8-23); Calcium 8.3 mg/dL (8.6-10.3); Carbon Dioxide 29 mEq/L (23-29); Chloride 103 mEq/L (98-107); Glucose 114 mg/dL (70-105); Osmolality,Calculated 295 (280-300); Potassium 3.7 mEq/L (3.5-5.1); Sodium 140 mEq/L (136-145); eGFR For Non-African Americans > 60 (> 60)
[2018-02-23] MEDS ORDERED: Cholecalciferol (D-3) 1,000 UNIT TABLET PO SCH (09:00)
[2018-02-23] MEDS: Metoprolol XL (24 HR) Succ 50 MG TAB.ER.24H PO SCH (09:08)
[2018-02-23] MEDS: *HR* Rivaroxaban 15 MG TABLET PO SCH (09:08)
[2018-02-23] MEDS: Gabapentin 300 MG CAPSULE PO SCH (09:08)
[2018-02-23] MEDS: Sennosides/Docusate Sodium TABLET PO SCH (09:09)
[2018-02-23] MEDS: Latanoprost 2.5 ML BOTTLE BOTH EYES SCH (09:11)
[2018-02-23] MEDS: Dorzolamide/Timolol OPTH 10 ML BOTTLE BOTH EYES SCH (09:15)
[2018-02-23] MEDS: Oxymetazoline Nasal SPRAY BOTTLE NS SCH (09:15)
--- NOTE | 2018-02-23 12:08 | Internal Med Progress Note ---
Hospitalist Progress Note - Encounter Date of Encounter: 02/23/18 Time of Encounter: 09:00 - Exam Vitals: Temp Pulse Resp BP Pulse Ox 98.2 F 74 16 128/76 94 02/23/18 11:13 02/23/18 11:13 02/23/18 11:13 02/23/18 11:13 02/23/18 11:13 - Assessment and Plan (1) Fracture of femur Current Visit: Yes Status: Acute (2) Pelvis fracture Current Visit: Yes Status: Acute (3) Afib Current Visit: Yes Status: Acute (4) CKD (chronic kidney disease) Current Visit: No Status: Chronic (5) Hypertension Current Visit: No Status: Chronic (6) DVT prophylaxis Current Visit: Yes Status: Acute (7) Acute blood loss as cause of postoperative anemia Current Visit: Yes Status: Acute - Time Spent with Patient Total time spent is greater than 50% in coordination of care (as documented) at patient's floor/unit and/or counseling patient: Internal Medicine: Result - Labs CBC & Chem 7: 02/23/18 00:49 02/23/18 00:49 Labs: Short CBC 02/23/18 Range/Units 00:49 WBC 12.2 H (4.3-11.1) K/mcL Hgb 7.8 L (11.5-15.4) g/dL Hct 25.3 L (35.3-44.9) % Plt Count 157 (140-400) K/mcL Neutrophils # 9.2 H (1.6-8.9) K/mcL BMP 02/23/18 00:49 Sodium 140 Potassium 3.7 Chloride 103 Carbon Dioxide 29 BUN 23 Creatinine 0.79 Glucose 114 H Calcium 8.3 L - ABG Interpretation ABG results: PT/INR, D-dimer PT 13.2 Seconds (9.4-12.1) H 02/21/18 00:27 - VTE Documentation of Mechanical Device: Intermittent pneumatic compression device Consult Discharge Plan - Plan Referrals: NONE,PCP [Primary Care Provider] - (1) Fracture of femur Qualifiers: Encounter type: subsequent encounter Femur location: unspecified portion of femur Fracture type: closed Fracture morphology: unspecified fracture morphology Laterality: right (2) Pelvis fracture Qualifiers: Encounter type: initial encounter Pelvic bone location: pubis Sublocation of pubis: unspecified portion of pubis Fracture type: closed Laterality: right Qualified Code(s): S32.501A - Unspecified fracture of right pubis, initial encounter for closed fracture (3) Afib Qualifiers: Atrial fibrillation type: unspecified Qualified Code(s): I48.91 - Unspecified atrial fibrillation (4) CKD (chronic kidney disease) Qualifiers: Chronic kidney disease stage: stage 3 (moderate) Qualified Code(s): N18.3 - Chronic kidney disease, stage 3 (moderate) (5) Hypertension Qualifiers: Hypertension type: unspecified Qualified Code(s): I10 - Essential (primary) hypertension
--- NOTE | 2018-02-23 12:13 | Discharge Summary ---
- NOTES TO OUTPATIENT PROVIDER Notes to Outpatient Provider: please follow up with orthopedics. serial CBCs to monitor H/H as she is on zarelto s/p transfusion while in the hospital. follow vital signs. Orders not resulted at time of discharge: Pending orders 02/20/18 XR femur RT [XR] Routine Date of Encounter: 02/23/18 Time of Encounter: 12:12 - Discharge Diagnosis (1) Fracture of femur Priority: Primary Status: Acute Qualifiers: Encounter type: subsequent encounter Femur location: unspecified portion of femur Fracture type: closed Fracture morphology: unspecified fracture morphology Laterality: right Qualified Code(s): S72.91XD - Unspecified fracture of right femur, subsequent encounter for closed fracture with routine healing (2) Pelvis fracture Priority: Secondary Status: Acute Qualifiers: Encounter type: initial encounter Pelvic bone location: pubis Sublocation of pubis: unspecified portion of pubis Fracture type: closed Laterality: right Qualified Code(s): S32.501A - Unspecified fracture of right pubis, initial encounter for closed fracture (3) Afib Priority: Secondary Status: Acute Qualifiers: Atrial fibrillation type: unspecified Qualified Code(s): I48.91 - Unspecified atrial fibrillation (4) CKD (chronic kidney disease) Priority: Secondary Status: Chronic Qualifiers: Chronic kidney disease stage: stage 3 (moderate) Qualified Code(s): N18.3 - Chronic kidney disease, stage 3 (moderate) (5) Hypertension Priority: Secondary Status: Chronic Qualifiers: Hypertension type: unspecified Qualified Code(s): I10 - Essential (primary ) hypertension (6) DVT prophylaxis Priority: Secondary Status: Acute (7) Acute blood loss as cause of postoperative anemia Priority: Secondary Status: Acute Hospital course: Ms. Ferguson is a 87 year old female 87 year old female with past medical history of atrial fibrillation, hypertension, hyperlipidemia, CAD, dementia, resident of [facility], presented after an episode of fall.According to the chart review, patient had fallen around 8pm when she was trying to get out of her bed to yell at another resident but did not use her walker and had a mechanical fall. Landed on the right side of her body, but patient did not lose any consciousness or had obvious head injury. No change in her mentation after the fall. Recent illnesses, fevers/chills, nausea/vomiting, abdominal pain, change in bowel habits, dysuria, or foul-smelling urine. She is on Xarelto for atrial fibrillation. In the ED, she was afebrile and hemodynamically stable. Initial workup showed right subtrochanteric femoral fracture as well as superior and inferior pubic rami fracture on the same side. orthopedics were consulted s/p Right hip cephalomedullary nail on 02/20/18. her xarelto was continued for AC ( Afib and recent surgery) post operative day 1. and as per chart review inferior pubic rami fracture reqquired nonsurgical management. On admission she had a hemoglobin of 10.4, on the her to go hemoglobin trended down to 8.8 postoperatively. She was started on Xarelto on the for anticoagulation. Hemoglobin followed on the which trended down to 7.1. She was transfused 1 unit of PRBC at that time. Hemoglobin on February 23 shows improvement to 7.8. Vitals remained stable. Physical therapy and rehabilitation were consulted, social work and case management are on board. Recommendations followed. Orthopedics contacted and agreed with discharge to nursing facility. mimi Morris at [facility] coarse reviewed with him and his and they are in agreement with Discharge. Discharge discussed with: patient, nurse, social work, case management, quality compliance consultant - Time Spent with Patient Total time spent providing and/or coordinating discharge services: Less than 30 minutes - Discharge Medications Home Medications: Calcium Carbonate/Vitamin D3 [Calcium 600 + Vit D Tablet] 1 tab PO BID 02/20/18 [History] Docusate [Colace] 200 mg PO DAILY 02/20/18 [History] Donepezil [Aricept] 10 mg PO HS 02/20/18 [History] Dorzolamide/Timolol [Cosopt] 1 drop BOTH EYES BID 02/20/18 [History] Gabapentin [Neurontin] 300 mg PO BID 02/20/18 [History] Metoprolol Succinate [Toprol Xl] 50 mg PO DAILY 02/20/18 [History] Oxymetazoline HCl [Long Acting Nasal [place]] 15 ml NS BID 02/20/18 [History] Pravastatin Sodium [Pravachol] 20 mg PO DAILY 02/20/18 [History] Rivaroxaban [Xarelto] 15 mg PO DAILY 02/20/18 [History] Sennosides/Docusate Sodium [Senna Plus] 4 tab PO DAILY 02/20/18 [History] Travoprost [Travatan Z] 1 drop OP DAILY 02/20/18 [History] Acetaminophen [Tylenol] 650 mg PO Q6H PRN tablet 02/23/18 [Rx] Cholecalciferol (D-3) [Vitamin D] 1,000 unit PO DAILY tablet 02/23/18 [Rx] Allergies/Adverse Reactions: 3 Allergy/AdvReac Type Severity Reaction Status Date / Time No Known Allergies Allergy Verified 02/20/18 03:43 Date of admission: 02/20/18 12:46 Primary care physician: PCP NONE Consults: 02/20/18 14:50 Consult to Occupational Therapy [CONS] Routine Comment: Evaluate, develop and implement POC Reason for Consult: post hip surgery Does patient have active BEDREST order?: No Is patient medically & hemodynamically stable?: Yes Consult to Orthopedic Navigator [CONS] [CONS] Routine Consult to Physical Therapy [CONS] Routine Comment: Evaluate, develop and implement POC Reason for Consult: post hip surgery Does patient have active BEDREST order?: No Is patient medically & hemodynamically stable?: Yes Consult to Sales Service Promoter [CONS] Routine Reason for SW Consult: post -op hip fracture RT Post Op Consult [CONS] Routine - Constitutional Vitals: Temp Pulse Resp BP Pulse Ox 98.2 F 74 16 128/76 94 02/23/18 11:13 02/23/18 11:13 02/23/18 11:13 02/23/18 11:13 02/23/18 11:13 Exam: GENERAL: Alert, no distress, cooperative Head: atraumatic, normocephalic, Eye: normal appearance, PERRL, no scleral icterus, no conjunctival injection LUNGS: Lungs clear to auscultation, Good diaphragmatic excursion CARDIAC: Irregular rate and rhythm; no rubs, murmurs, or gallops ABDOMEN: Abdomen soft, non-tender, BS normal, No masses or organomegaly EXTREMITIES: Postoperative bandage in on the right limb. Able to wiggle toes. Neurosensory intact PULSES: 2+ radial, 2+ carotid Skin: warm, dry, intact. - Patient Status Disposition: Transfer SNF Condition: Good Overall status at discharge: patient is progressing back to baseline - Discharge Instructions Follow Up With: NONE,PCP [Primary Care Provider] - - Diet and Activity Activity: as per physical therapy Diet: advance to your usual diet - VTE Documentation of Mechanical Device: Intermittent pneumatic compression device
--- NOTE | 2018-02-23 12:57 | Physician Discharge Referral ---
ExtendedCare Referral Info Transfer To: SNF Provider in Charge: Shantell daly Provider in Charge after Transfer: PCP Institutional Level of Care: Skilled - Diagnosis (1) Fracture of femur Priority: Primary Status: Acute (2) Pelvis fracture Priority: Secondary Status: Acute (3) Afib Priority: Secondary Status: Acute (4) CKD (chronic kidney disease) Priority: Secondary Status: Chronic (5) Hypertension Priority: Secondary Status: Chronic (6) DVT prophylaxis Priority: Secondary Status: Acute (7) Acute blood loss as cause of postoperative anemia Priority: Secondary Status: Acute - Transfer Medications Home Medications: Calcium Carbonate/Vitamin D3 [Calcium 600 + Vit D Tablet] 1 tab PO BID 02/20/18 [History] Docusate [Colace] 200 mg PO DAILY 02/20/18 [History] Donepezil [Aricept] 10 mg PO HS 02/20/18 [History] Dorzolamide/Timolol [Cosopt] 1 drop BOTH EYES BID 02/20/18 [History] Gabapentin [Neurontin] 300 mg PO BID 02/20/18 [History] Metoprolol Succinate [Toprol Xl] 50 mg PO DAILY 02/20/18 [History] Oxymetazoline HCl [Long Acting Nasal [place]] 15 ml NS BID 02/20/18 [History] Pravastatin Sodium [Pravachol] 20 mg PO DAILY 02/20/18 [History] Rivaroxaban [Xarelto] 15 mg PO DAILY 02/20/18 [History] Sennosides/Docusate Sodium [Senna Plus] 4 tab PO DAILY 02/20/18 [History] Travoprost [Travatan Z] 1 drop OP DAILY 02/20/18 [History] Acetaminophen [Tylenol] 650 mg PO Q6H PRN tablet 02/23/18 [Rx] Cholecalciferol (D-3) [Vitamin D] 1,000 unit PO DAILY tablet 02/23/18 [Rx] Allergies/Adverse Reactions: 3 Allergy/AdvReac Type Severity Reaction Status Date / Time No Known Allergies Allergy Verified 02/20/18 03:43 - Respiratory Orders Smoking Cessation: Smoking cessation has been advised. For more information, call the [place] Tobacco Quit Line at 4-831-CGSZ-NOW. - Lab Orders Lab Orders: CBC - Mobility Orders Chair - Rehabiliation Orders Rehab Orders: Evaluation for Physical Therapy CERTIFICATION: I certify that the transfer of the above named patient to an Extended Care Facility is necessary for the continuing treatment of the diagnosis listed. The above information is true and accurate reflection of patient's current condition. Confidential - Redisclosure prohibited without a patient's written consent.
[2018-02-23 15:32] VITALS: BP 126/74
== END 2018-02-23 16:40 | DRG 956 ==
LOC: 3NENU 03:33 → EMEROO 03:33 → 3NENU 08:08 → SUATTDRO 12:46 → 3NENU 02-23 20:47
PROVIDERS: ADMIT Family Medicine; ATTEND Internal Medicine